=== PATIENT | female | born 1975 | race Caucasian/White ===

== ENCOUNTER 2023-06-04 14:17 | Emergency (ER) | payer OTHER ==
[2023-06-04] MEDS ORDERED: HYDROcodone/Acetaminophen 10/325 mg Tablet ONE (15:40)
[2023-06-04] MEDS ORDERED: Ondansetron ODT 4 MG TAB ONE (15:57)
[2023-06-04] MEDS ORDERED: Lidocaine 4% Patch TD SCH (16:00)
[2023-06-04] MEDS ORDERED: diphenhydrAMINE 25 MG CAP ONE (16:12)
[2023-06-04] MEDS ORDERED: Dexamethasone 20 MG/5 ML VIAL ONE (16:12)
[2023-06-05] MEDS ORDERED: Transdermal Patch Removal TOP SCH (04:00)
== END 2023-06-04 17:40 | disposition home or self-care (01) ==
LOC: NAV ERS 14:17
DX: G89.29 Other chronic pain (principal); M54.50 Low back pain, unspecified; Z79.84 Long term (current) use of oral hypoglycemic drugs; Z79.899 Other long term (current) drug therapy
CPT/HCPCS: 99283; J1100; Q0162